=== PATIENT | male | born 1980 ===

== ENCOUNTER 2020-03-28 23:31 | Emergency (ER) | payer OTHER ==
[~2020-03-28] VITALS: Ht 165.1 cm; Wt 69.2 kg
[2020-03-28 23:35] VITALS: BP 166/101
--- NOTE | 2020-03-29 00:57 | NUR ---
pt signed ama, pt left.
== END 2020-03-29 00:59 ==
LOC: ED 03-29 00:53
DX: R10.9 Unspecified abdominal pain (principal); Z53.21 Procedure and treatment not carried out due to patient leaving prior to being seen by health care provider